=== PATIENT | female | born 1985 | race Caucasian/White ===

== ENCOUNTER 2022-08-25 08:00 | Outpatient (NON) | payer OTHER, SELFPAY | END 2022-08-25 08:01 | disposition home or self-care (01) | LOC: ANHLAB 08-28 07:40 | PROVIDERS: Visit Provider Surgery Plastic and Reconstructive Surgery | DX: Z98.82 Breast implant status (principal) | CPT/HCPCS: 88304 ==

== ENCOUNTER 2022-08-25 11:46 | Day surgery (SDC) | payer OTHER, SELFPAY ==
[2022-08-10 08:49] VITALS: BMI 21.6
[2022-08-25] VITALS (7 sets, daily range): BP systolic 128–146; BP diastolic 80–97; PULSE 72–109; RESP 14–20; TEMP 36.9; O2SAT 95–100
--- NOTE | 2022-08-25 06:53 | WPDANESEPPF ---
Anes - Initial Pre Proc Eval Procedure: Operation Date: 08/25/22 13:30 Proposed Procedures p Bilateral Breast Implant Exchange with Capsulectomy - Elliot Arzola MD <Nuno Cruz DO - Last Filed: 09/04/22 08:27> Date/Time: 08/25/22 06:53 <uNno Cruz DO - Last Filed: 09/04/22 08:27> Surgeon: Elliot Arzola MD <Nuno Cruz DO - Last Filed: 09/04/22 08:27> Pre Op Diagnosis: History of Breast Augmentation <Nuno Cruz DO - Last Filed: 09/04/22 08:27> Patient Data Age: 37 Gender: F Height: 1.65 m Weight: 59 kg <Nuno Cruz DO - Last Filed: 09/04/22 08:27> Allergies Allergy/AdvReac Type Severity Reaction Status Date / Time No Known Allergies Allergy Unknown Verified 08/25/22 12:35 <Nuno Cruz DO - Last Filed: 09/04/22 08:27> Home Medications Medication Instructions Recorded Confirmed Type Lactobacillus 1 cap PO DAILY 08/10/22 08/25/22 History acidophilus-Bifidobac.animalis 2.5 billion cell capsule (Daily Probiotic) ascorbic acid 7.5 mg-vit E 7.5 1 tablet PO DAILY 08/10/22 08/25/22 History unit-biotin 1,250 mcg chewable tablet (Hair,Skin,Nails with Biotin) multivitamin with minerals-folic 1 tablet PO DAILY 08/10/22 08/25/22 History acid 0.4 mg tablet spironolactone 25 mg tablet 25 mg PO HS 08/10/22 08/25/22 History (Aldactone) sumatriptan succinate 50 mg tablet 50 mg PO DAILY PRN MIGRAINES 08/10/22 08/25/22 History tirzepatide 2.5 mg/0.5 mL 2.5 mg subcut WEEKLY WEIGHT LOSS 08/10/22 08/25/22 History subcutaneous pen injector (Mounjaro) venlafaxine 37.5 mg 37.5 mg PO HS 08/10/22 08/25/22 History capsule,extended release 24 hr (Effexor XR) <Nuno Cruz DO - Last Filed: 09/04/22 08:27> Patient hx anesthesia problems: none <Paresh Zambrano MD - Last Filed: 08/25/22 15:35> Family hx anesthesia problems: none <Paresh Zambrano MD - Last Filed: 08/25/22 15:35> Results Review: All pre-operative results and documents have been reviewed as part of the pre-operative evaluation. <Nuno Cruz DO - Last Filed: 09/04/22 08:27> [facility] Past Medical History Medical History: Medical History (Updated 08/25/22 @ 06:53 by Nuno Cruz DO) Anxiety PONV (postoperative nausea and vomiting) <Nuno Cruz DO - Last Filed: 09/04/22 08:27> Surgical History Surgical History: Surgical History (Updated 08/25/22 @ 06:53 by Nuno Cruz DO) History of breast augmentation History of hysterectomy <Nuno Cruz DO - Last Filed: 09/04/22 08:27> Social History Social History: Social History Smoking status: Never smoker Second hand tobacco smoke exposure: No Alcohol intake: current Drinks per week: 1 Alcohol use details: ONCE A MONTH Substance use: never Substance use type: does not use Living arrangements: with family Spiritual care concerns: No <Nuno Cruz DO - Last Filed: 09/04/22 08:27> Anes - Eval Final PreProcedure Day of Procedure 08/25/22 06:53 <Nuno Cruz DO - Last Filed: 09/04/22 08:27> Patient weight: normal <Nuno Cruz DO - Last Filed: 09/04/22 08:27> Heart: regular rate and rhythm <Nuno Cruz DO - Last Filed: 09/04/22 08:27> Lungs: clear to auscultation <Nuno Cruz DO - Last Filed: 09/04/22 08:27> Airway: Mallampati scale class II <Nuno Cruz DO - Last Filed: 09/04/22 08:27> Neurological: alert and oriented <Nuno Cruz DO - Last Filed: 09/04/22 08:27> Last oral intake: >/= 8 hours <Nuno Cruz DO - Last Filed: 09/04/22 08:27> ASA classification: II <Nuno Cruz DO - Last Filed: 09/04/22 08:27> Emergent: no <Nuno Cruz DO - Last Filed: 09/04/22 08:27>
[2022-08-25] MEDS: LACTATED RINGERS 1,000 ML 30 ML IV CONT (12:34)
[2022-08-25] MEDS: SCOPOLAMINE 1.5 MG PATCH TRANSDERM (12:34)
--- NOTE | 2022-08-25 12:47 | WPDHPUPDATE1 ---
History and Physical Update Update Date/Time: 08/25/22 12:47 History and Physical has been reviewed, including an updated exam of the patient. There are NO changes in the patient's condition. Risks, benefits, and alternatives have been discussed and questions answered. Patient agrees to proceed with procedure.
--- NOTE | 2022-08-25 12:47 | W.PM.PROC2 ---
Procedure Note - Detailed Date of Procedure 08/25/22 Pre-op Diagnosis History of Breast Augmentation Post-op Diagnosis Same Procedure Performed Bilateal implant exchange with partial capsulectomy Surgeon Elliot Arzola MD Anesthesia General Findings Previous Implants: Right: TRLP-440 Left: TRLP - 400 New implants Right: SSF-745 SN [id number] Left: SSF-695 SN [id number] Capsule: Bilateral double capsule extending from posterior patch bilateral. No seroma. Description of Procedure Preoperatively the risks, benefits, alternatives were discussed in extensive detail. I wanted to be very realistic about the risks involved as well as expectations. We discussed the volume that she is selecting, the weight involved, how this affects her tissue and had a lengthy discussion about the risks of larger implants. I was very upfront and honest about larger implants so that she was well informed of this decision. I was also clear about how we could actually make her worse. Answered all questions to satisfaction. Voiced a clear understanding. Consent obtained. She was taken the operating room placed supine on the operating room table. Anesthesia provided by anesthesiology and prepped and draped in a standard sterile fashion. Surgical time-out was taken. 1% lidocaine and 0.25% Marcaine with epinephrine was used to provide a field block. Tegaderm nipple davis were placed. Fifteen blade used to excise the previous IMF scars. Dissection was continued down until the capsules were identified and excised a significant portion of the capsule which was sent to pathology. I then copiously irrigated with 3 L of saline solution on TUR tubing. Verified strict hemostasis. I then irrigated with Betadine containing solution. Using a no-touch technique and a May funnel the implant was introduced into the pocket. This was closed with 2-0 PDS followed by 3-0 Monocryl and a running subcuticular 4-0 Monocryl followed by tissue glue. Dressings were placed. She was woken taken to the PACU without difficulty. All instrument sponge counts were correct at the end of the case. Estimated Blood Loss 50 Drains No Packing No Pathology None sent Complications No immediate complications Condition Stable Disposition PACU
[2022-08-25] MEDS: ceFAZolin SODIUM 2 GM/20 ML SW SYRINGE IV PUSH (13:58)
[2022-08-25] MEDS: TRANEXAMIC ACID 1,000 MG/10 ML AMPUL 1000 MG IV PUSH (13:58)
[2022-08-25] MEDS: NACL 0.9% IRRIG POUR BOTTLE 900 ML, GENTAMICIN SULFATE INJ 160 MG, ceFAZolin 2 GM, POVI... IRRIGATION (14:40)
--- NOTE | 2022-08-25 15:35 | WPDANESPN ---
Anes - Prog Note Post-Op Date/Time: 08/25/22 15:35 Cardiovascular status: normal Respiratory status: normal Airway patency: baseline Mental status: baseline Post-Op hydration status: normal Vital Signs: Last Vital Signs Temp 36.9 C 08/25/22 12:00 Pulse 98 08/25/22 15:30 Resp 19 08/25/22 15:30 BP 138/97 H 08/25/22 15:30 Pulse Ox 100 08/25/22 15:30 O2 Del Method Simple Face Mask 08/25/22 15:30 O2 Flow Rate 6 08/25/22 15:30 Pain Score (VAS): 0 I/O: Intake & Output 08/24/22 08/25/22 08/25/22 23:59 07:59 15:59 Intake Total 0 Balance 0 Post-procedural complaints: none Patient Feedback: Patient satisfied with anesthetic care.
[2022-08-25] MEDS: fentaNYL CITRATE INJ (*CRX) 100 MCG/2 ML VIAL 25 MCG IV PUSH ×4 (15:40→15:56)
--- NOTE | 2022-08-25 15:49 | SUR.PHASEI ---
PT SLEEPING NOW. RESP EVEN UNLABORED.
--- NOTE | 2022-08-25 15:55 | SUR.PHASEI ---
AROUSED PT EASILY, ASKED ABOUT PAIN. PT STATES PRETTY UNCOMFORTABLE . THEN GOES BACK TO SLEEP. FENTANYL GIVEN PRN.
[2022-08-25] MEDS: oxyCODONE HCL (*CRX) 5 MG TAB IR PO (16:18)
== END 2022-08-25 16:50 | disposition home or self-care (01) ==
PROVIDERS: Visit Provider Surgery Plastic and Reconstructive Surgery
PROC: (CPT 19342; principal; 2022-08-25 13:30)
DX: Z98.82 Breast implant status (principal)
CPT/HCPCS: 19342